=== PATIENT | female | born 1930 | race Caucasian/White ===

== ENCOUNTER → 2017-06-16 | Outpatient (CLI) | payer MEDICARE, OTHER ==
[~2017-06-16] MED LIST: ALDACTAZIDE 25/1 TAB PO; ALDACTAZIDE PO; ASPIRIN PO; ATENOLOL PO; B6100 MG PO; CALTRATE PLUS T1 TAB PO; CENTRUM SILVER PO; DIAZEPAM PO; FISH OIL 1,0001 CA2 PO; FISH OIL 1,0001 CAP PO; FOSAMAX PO; GARLIC OIL1000 MG PO; GARLIC TABS; GLUCOSAMINE; GLUCOSAMINE CHO1 CA2 PO; IRON SUPPLEMENT1 TAB PO; LEVOTHYROXINE50 MCG PO; MAG-OXIDE400 MG PO; MAGNESIUM200 MG PO; NASONEX17 GM; NATURAL VITA200 UNI1 PO; POTASSIUM GLUCO99 MG PO; POTASSIUM99 M3 PO; SYNTHROID PO; VIT E PO; VITAMIN B12-FO1 EACH PO; ZINC SULFATE PO; ZOCOR PO; ZOCOR10 MG PO; ZYRTEC PO
--- NOTE | ~2017-06-16 | MR17 ---
[facility] A Service of [facility] & [facility] RADIOLOGY TEXT RESULTS PATIENT: DOM ALCALA LOCATION: [facility] : [birth year] UNIT #: [id number] AGE: [address]: Kendrick Shen MD SEX: F ORDER DR: [id number] [address] [address] [id number] MR#: [id number] Acc #: [id number] NAME: DOM ALCALA : 1930 SEX: F STUDY DATE/TIME: 06/16/2017 13:10 UNIT: [facility] ROOM: STUDY DESCRIPTION: MR Brain WWo Contrast Attending Physician: Kendrick Shen M.D. Referring Physician: Kendrick Shen M.D. Ordering Physician: Kendrick Shen M.D. Primary Care Physician: Nevin Shen M.D. MRI CENTER REPORT This report is preliminary unless electronic signature is present. EXAM Brain MRI with and without HISTORY Meningioma. Follow-up. History of ovarian cancer diagnosed in July 1984. No current complaints. FINDINGS MRI of the brain was performed prior and following the intravenous administration of 12 mL of MultiHance. The comparison study is from 01/19/2015. Redemonstrated is the patient's known meningioma at the anterior aspect of the left middle cranial fossa along the greater wing of the sphenoid. Signal characteristics suggests that it is calcified with very low signal intensity on the T2-weighted sequence. It enhances most peripherally and to a lesser extent centrally as well. It is stable to minimally increased in size since 2014. It currently measures about 2.3 cm SI dimension and 2.5 cm ML dimension and about 2.3 cm AP dimension. There is mild local mass effect but there does not appear to be edema in the adjacent brain. There is underlying atrophy present. There is no evidence for a recent ischemic insult on the diffusion series. There is mild generalized atrophy consistent with age group. There is no extraaxial fluid collection. The major intracranial flow voids are maintained. There is mild mucosal disease in the paranasal sinuses and partial opacification of the right-sided mastoid air cells but there is no sinus air fluid level. Tiny chronic lacunes in the right cerebellar hemisphere as well as small chronic lacunes likely in the basal ganglia and thalami bilaterally. There is also chronic lacunar disease left cerebellar hemisphere and at least moderate white matter signal abnormality with lesions in the subcortical deep and periventricular white STS. [facility] A Service of [facility] & [facility] RADIOLOGY TEXT RESULTS PATIENT: DOM ALCALA LOCATION: [facility] : [birth year] UNIT #: [id number] AGE: [address]: Kendrick Shen MD SEX: F ORDER DR: matter likely due to small vessel disease in age group. Mild signal abnormality in the brainstem likely due to small vessel disease. There is no associated mass effect. There is no hydrocephalus. The basilar cisterns are patent. There is no midline shift. Postcontrast imaging shows no additional pathologic intracranial enhancement. There is no MRI evidence for intracranial hemorrhage. IMPRESSION 1. Essentially stable appearance to the patient's known likely calcified meningioma centered at the anterior aspect of the left middle cranial fossa. There is mild local mass effect. There does not appear to be edema in the adjacent brain or direct brain invasion. There is no midline shift or downward herniation. 2. Atrophy and probable sequelae of small vessel disease. 3. Continued interval follow-up recommended. Dictated by... Citlaly Gant M.D. THIS IS AN ELECTRONICALLY VERIFIED REPORT Citlaly Gant M.D. at 06/17/2017 6:01 PM Koffi TD: 06/17/2017 14:14 JOB #: [id number] MRI CENTER REPORT Page 1 of 1
[2017-06-16 14:10] LABS: POC - CREATININE 0.73 mg/dL (0.44-1.03); POC - GFR >60.0 mL/min (>60)
== END | disposition home or self-care (01) ==
LOC: SMRI 13:00
PROVIDERS: Internal Medicine
DX: D32.0 Benign neoplasm of cerebral meninges (principal)
CPT/HCPCS: 70553; 82565; A9581